=== PATIENT | male | born 1965 | race African-American/Black ===

== ENCOUNTER 2016-12-12 08:43 | Emergency (ER) | payer OTHER ==
[2016-12-12 09:40] LABS: ABSOLUTE BASOPHILS # (AUTO) 0.1 10^3/uL (0.0-0.2); ABSOLUTE EOSINOPHILS # (AUTO) 0.2 10^3/uL (0.0-0.6); ABSOLUTE MONOCYTES (AUTO) 0.4 10^3/uL (0.1-1.4); ABSOLUTE NEUT (AUTO) 1.5 10^3/uL (1.7-8.2); BASOPHILS % (AUTO) 1.2 % (0-2); HEMATOCRIT 38.5 % (37.9-51.0); HEMOGLOBIN 12.8 g/dL (13.5-17.0); HGB HCT DIFFERENCE -0.1; LYMPHOCYTES % (AUTO) 47.1 % (13-45); MEAN CORPUSCULAR HEMOGLOBIN 30.2 pg (27.0-33.4); MEAN CORPUSCULAR HGB CONC 33.4 g/dL (32.0-36.0); MEAN CORPUSCULAR VOLUME 91 fl (80-97); MONOCYTES % (AUTO) 10.5 % (3-13); RED BLOOD COUNT 4.25 10^6/uL (4.35-5.55); RED CELL DISTRIBUTION WIDTH 14.4 % (11.5-14.0); SEGMENTED NEUTROPHILS % (AUTO) 37.2 % (42-78); WHITE BLOOD COUNT 4.1 10^3/uL (4.0-10.5)
[2016-12-12 09:50] LABS: ALANINE AMINOTRANSFERASE 17 U/L (21-72); ALBUMIN 3.4 g/dL (3.5-5.0); ALKALINE PHOSPHATASE 72 U/L (38-126); ANION GAP 9 (5-19); ASPARTATE AMINO TRANSFERASE 21 U/L (17-59); BILIRUBIN,DIRECT 0.2 mg/dL (0.0-0.4); BILIRUBIN,TOTAL 0.8 mg/dL (0.2-1.3); BLOOD UREA NITROGEN 11 mg/dL (7-20); CALCIUM 9.4 mg/dL (8.4-10.2); CARBON DIOXIDE 28 mmol/L (22-30); CHLORIDE 107 mmol/L (98-107); CREATININE RESULT 0.82 mg/dL (0.52-1.25); GLUCOSE 87 mg/dL (75-110); POTASSIUM 3.9 mmol/L (3.6-5.0); SODIUM 144.3 mmol/L (137-145); TOTAL PROTEIN 6.4 g/dL (6.3-8.2)
[2016-12-12 09:51] LABS: ALCOHOL < 10 mg/dL (NONE DETECTED)
[2016-12-12 10:44] LABS: APPEARANCE,URINE CLEAR; BILIRUBIN,URINE NEGATIVE (NEGATIVE); GLUCOSE, URINE NEGATIVE (NEGATIVE); KETONES,URINE NEGATIVE (NEGATIVE); LEUKOCYTE ESTERASE,URINE NEGATIVE (NEGATIVE); NITRITE,URINE NEGATIVE (NEGATIVE); PROTEIN,URINE NEGATIVE (NEGATIVE); URINE SPECIFIC GRAVITY 1.013; UROBILINOGEN,URINE NEGATIVE mg/dL (<2.0)
--- NOTE | 2016-12-12 10:50 | EKG REPORT ---
SEVERITY:- ABNORMAL ECG - SINUS RHYTHM PROBABLE ANTEROSEPTAL INFARCT, AGE INDETERM : Confirmed by: Zaki Araya 12-Dec-2016 10:49:19
[2016-12-12 10:57] LABS: URINE BARBITURATES SCREEN NEGATIVE; URINE METHADONE SCREEN NEGATIVE; URINE PHENCYCLIDINE SCREEN NEGATIVE
[2016-12-12 11:09] LABS: URINE OPIATES LOW NEGATIVE
--- NOTE | 2016-12-12 12:18 | ER Document Report ---
ED General - General Chief Complaint: Psych Problem Stated Complaint: IVC WITH PAPERS Mode of Arrival: Medic Information source: Patient, [facility] Records Notes: 51 yr old male presents with psychosis hallucinations. Pt has not been taking his meds or taking care of himself, appears he tried tossing his adult sons who were at his home to help him out TRAVEL OUTSIDE OF THE [place] IN LAST 30 DAYS: No - HPI Onset: Just prior to arrival Onset/Duration: Sudden Quality of pain: No pain Severity: None Pain Level: Denies Associated symptoms: None Exacerbated by: Denies Relieved by: Denies Similar symptoms previously: Yes Recently seen / treated by doctor: Yes - Related Data Allergies/Adverse Reactions: No Known Allergies Allergy (Unverified 08/16/12 20:20) Past Medical History - Social History Smoking Status: Never Smoker Cigarette use (# per day): No Chew tobacco use (# tins/day): No Smoking Education Provided: No Frequency of alcohol use: None Drug Abuse: None Family History: Reviewed & Not Pertinent Patient has suicidal ideation: No Patient has homicidal ideation: No - Past Medical History Cardiac Medical History: Reports: Hx Hypertension Endocrine Medical History: Reports: Hx Diabetes Mellitus Type 2 Psychiatric Medical History: Reports: Hx Bipolar Disorder, Hx Schizophrenia - Immunizations Hx Diphtheria, Pertussis, Tetanus Vaccination: No Review of Systems - Review of Systems Notes: REVIEW OF SYSTEMS: CONSTITUTIONAL : Denies fever, chills, or sweats. Denies recent illness. EENT: Denies eye, ear, throat, or mouth pain or symptoms. Denies nasal or sinus congestion or discharge. Denies throat, tongue, or mouth swelling or difficulty swallowing. CARDIOVASCULAR: Denies chest pain. Denies palpitations or racing or irregular heart beat. Denies ankle edema. RESPIRATORY: Denies cough, cold, or chest congestion. Denies shortness of breath, difficulty breathing, or wheezing. GASTROINTESTINAL: Denies abdominal pain or distention. Denies nausea, vomiting , or diarrhea. Denies blood in vomitus, stools, or per rectum. Denies black, tarry stools. Denies constipation. GENITOURINARY: Denies difficulty urinating, painful urination, burning, frequency, blood in urine, or discharge. MUSCULOSKELETAL: Denies back or neck pain or stiffness. Denies joint pain or swelling. SKIN: Denies rash, lesions or sores. HEMATOLOGIC : Denies easy bruising or bleeding. LYMPHATIC: Denies swollen, enlarged glands. NEUROLOGICAL: Denies confusion or altered mental status. Denies passing out or loss of consciousness. Denies dizziness or lightheadedness. Denies headache. Denies weakness or paralysis or loss of use of either side. Denies problems with gait or speech. Denies sensory loss, numbness, or tingling. Denies seizures. PSYCHIATRIC: Denies anxiety or stress. Denies depression, suicidal ideation, or homicidal ideation. ALL OTHER SYSTEMS REVIEWED AND NEGATIVE. Dictation was performed using [employer] voice recognition software PHYSICAL EXAMINATION: GENERAL: Poor hygiene HEAD: Atraumatic, normocephalic. EYES: Pupils equal round and reactive to light, extraocular movements intact, sclera anicteric, conjunctiva are normal. ENT: Nares patent, oropharynx clear without exudates. Moist mucous membranes. NECK: Normal range of motion, supple without lymphadenopathy LUNGS: Breath sounds clear to auscultation bilaterally and equal. No wheezes rales or rhonchi. HEART: Regular rate and rhythm without murmurs ABDOMEN: Soft, nontender, nondistended abdomen. No guarding, no rebound. No masses appreciated. Musculoskeletal: Normal range of motion, no pitting or edema. No cyanosis. NEUROLOGICAL: Cranial nerves grossly intact. Normal speech, normal gait. Normal sensory, motor exams PSYCH: Normal mood, normal affect. SKIN: Warm, Dry, normal turgor, no rashes or lesions noted. Physical Exam - Vital signs Vitals: Temp Pulse Resp BP Pulse Ox 97.5 F 89 20 126/82 H 100 12/12/16 09:07 12/12/16 09:07 12/12/16 09:07 12/12/16 09:07 12/12/16 09:07 Course - Re-evaluation Re-evalutation: 12/12/16 12:39 Patient will be held for mental health evaluation, at this time he appears to be in no significant distress - Vital Signs Vital signs: Temp Pulse Resp BP Pulse Ox 97.5 F 89 20 126/82 H 100 12/12/16 09:07 12/12/16 09:07 12/12/16 09:07 12/12/16 09:07 12/12/16 09:07 - Laboratory Result Diagrams: 12/12/16 09:16 12/12/16 09:16 Laboratory results interpreted by me: 12/12/16 12/12/16 09:16 09:16 RBC 4.25 L Hgb 12.8 L RDW 14.4 H Seg Neutrophils % 37.2 L Lymphocytes % 47.1 H Absolute Neutrophils 1.5 L ALT 17 L Albumin 3.4 L Salicylates < 1.0 L Acetaminophen < 10 L - EKG Interpretation by Wy EKG shows normal: Sinus rhythm, [place], Intervals, QRS Complexes Discharge - Discharge Clinical Impression: Acute psychosis Condition: Stable Disposition: PSYCH HOSP/UNIT
--- NOTE | 2016-12-12 12:31 | PSYCHOLOGICAL NOTE ---
Psych Note - Psych Note Psych Note: Patient is a 51 year old male who presents via [facility] under IVC. Patient states he does not know why he is here and states his must have decided to try and have him stay here due to discord. Patient declined to state what the discord was. Patient states he takes care of himself "as best I can." Patient states nothing prevents him from caring for himself. Patient further denies being prescribed any medications, for psychiatric and or medical reasons. Patient denies any psychiatric medications history. He states he was seen here and prescribed something for pneumonia. Patient's , Ting Valdes states she attempted to have the patient IVC yesterday; however, was unable. states the patient yesterday lost control yesterday and attempted to kick their adult son's out of the house who drove from [place] to help with roof repairs. states it was unprovoked. reports mobile crisis came and he refused to engage and just repeatedly stated he was fine. She states she went to the store and returned for food for him, and observed him in a room actively engaging in conversation with no one else in the room. reports this is common for the patient; however, he will deny this. She states he can become combative when confronted re: the hallucinations. reports he does not bathe, will urinate and defecate on himself, and does not eat. She states he will ambulate from his room to the kitchen to get coffee, however it is actually water, and will sit and puff on an unlit cigar. reports the patient previously weighed 300 lbs and has lost a tremendous amount of weight. reports the patient was here 5 or so months ago and was held for a few days and upon discharge refused medications and follow up. reports she attempted to put the medications in his food; however, he caught her doing so and got upset. reports concerns for patient's overall lack of self care, hallucinations, and refusal to follow [facility] with [facility]. She also states the patient is hypertensive and diabetic, but does not take his prescribed medications for either. Patient is A&O. Mood is is guarded with odd affect. Patient denies suicidal/ homicidal ideations, intent, plan, or means. Patient denies A/V H; however, presents staring, slow to verbally respond, and unable to maintain eye contact suggesting he is experiencing internal stimuli. Patient's thought processes were guarded and goal oriented towards discharge. Conversational speech was slow and low for prosody. Intellectual abilities were estimated within average range. Attention and focus were poor. Insight, judgment, and impulse control were poor. Unspecified Schizophrenia or Other Psychosis Patient's presenting symptoms were similar to that of a psychotic disorder and cause clinically significant distress in all domains of his life At this time there is not enough information to make a more specific diagnosis ( eg PTSD vs Schizoaffective Disorde vs Schizophrenia) Patient is recommended to remain under IVC for medication administration, observation, and further observation. While patient denies all allegations in the IVC petition and collateral reports, patient presents poorly groomed with pungent body odor, substantiating reports of disengaging from self care/ anhedonia. I consulted with Dr. Jewell in regards to the care and management of this patient. ED MD is in agreement with disposition and recommendations.
[2016-12-12] MEDS ORDERED: BENZTROPINE MESYLATE INJ 2 MG/2 ML AMPULE IM SCH (13:15)
[2016-12-12] MEDS ORDERED: HALOPERIDOL LACTATE INJ 5 MG/1 ML VIAL IM SCH (13:15)
[2016-12-12] MEDS ORDERED: CITALOPRAM HYDROBROMIDE 20 MG TABLET PO SCH (14:00)
[2016-12-12] MEDS ORDERED: BENZTROPINE MESYLATE INJ 2 MG/2 ML AMPULE IM ONE ×2 (14:00→18:30)
[2016-12-12] MEDS ORDERED: HALOPERIDOL LACTATE INJ 5 MG/1 ML VIAL IM ONE ×2 (14:00→18:30)
[2016-12-12] MEDS ORDERED: CITALOPRAM HYDROBROMIDE 20 MG TABLET PO ONE ×2 (14:00→18:30)
[2016-12-13] MEDS: CITALOPRAM HYDROBROMIDE 20 MG TABLET PO SCH (09:46)
[2016-12-13] MEDS: BENZTROPINE MESYLATE INJ 2 MG/2 ML AMPULE IM SCH (09:48)
--- NOTE | 2016-12-13 13:44 | PSYCHOLOGICAL NOTE ---
Psych Note - Psych Note Psych Note: Conducted check in with patient who is a 51 year old male under IVC at [facility] ED. Patient initially presented yesterday via [facility] under IVC, petitioned by Mobile Crisis the day prior. Petition alleged that patient was responding to internal stimuli and also has stopped caring for himself. Patient has stated he does not want his to visit or have any communication. Patient today is observed sitting on the side of his bed, rocking and often staring at the wall in the corner. Receives contact with suicide prevention counselor, Jairo Mendes who works with the [facility]. Mr. Mendes states the patient's has presented to his office this morning seeking assistance in regards to the patient. Mr. Mendes additionally reports prior episodes of patient not engaging in services and instead the presenting reporting concerns congruent with current episode. Discussed with Mr. Mendes the need for an adult protective services report. This clinician will file reports due to concerns over any secondary gain on behalf of the , and patient's ability to safely care for himself. [facility] Adult Protective Services: APS report filed over concerns for patient's home environment Unspecified Schizophrenia or Other Psychosis Patient's presenting symptoms were similar to that of a psychotic disorder and cause clinically significant distress in all domains of his life At this time there is not enough information to make a more specific diagnosis ( eg PTSD vs Schizoaffective Disorde vs Schizophrenia) Patient is recommended to remain under IVC for medication administration, observation, and further observation.
[2016-12-13] MEDS: HALOPERIDOL LACTATE INJ 5 MG/1 ML VIAL IM SCH (18:09)
--- NOTE | 2016-12-13 19:31 | ER Document Report ---
Doctor's Note Notes: 12/13/16 19:30 Rounds at approximately 7:30 PM. Patient being evaluated for acute psychosis, probably schizophrenia. It appears he has not been taking his meds as an outpatient. Vital signs all been essentially normal. Lab studies were also essentially normal. Patient appears to be medically stable for transfer or discharge. Mental health has assessed the patient and feels he should stay overnight for reassessment tomorrow. Maris Sapp M.D.
[2016-12-14] MEDS: HALOPERIDOL LACTATE INJ 5 MG/1 ML VIAL IM SCH (06:50)
[2016-12-14] MEDS: CITALOPRAM HYDROBROMIDE 20 MG TABLET PO SCH (09:56)
[2016-12-14] MEDS: BENZTROPINE MESYLATE INJ 2 MG/2 ML AMPULE IM SCH (09:58)
[2016-12-14] MEDS ORDERED: HALOPERIDOL DECANOATE INJ 100 MG/1 ML VIAL IM PRN (10:27)
--- NOTE | 2016-12-14 11:18 | ER Document Report ---
Doctor's Note Notes: 12/14/16 11:17 Patient was seen by psychiatry service. At this time the plan is to change the by mouth Haldol 2 Haldol 2.5 mg twice a day, and give 1 dose of Haldol decanoate 100 mg IM. He will continue to be observed.
--- NOTE | 2016-12-14 11:40 | PSYCHOLOGICAL NOTE ---
Psych Note - Psych Note Psych Note: Conducted check in with patient who is a 51 year old male under IVC at [facility]. Patient continues today to sit in the same position staring at the wall. Patient has refused a shower. Patient does not verbally engage in conversation. Unspecified Schizophrenia or Other Psychosis Patient's presenting symptoms were similar to that of a psychotic disorder and cause clinically significant distress in all domains of his life At this time there is not enough information to make a more specific diagnosis ( eg PTSD vs Schizoaffective Disorde vs Schizophrenia) Patient is recommended to remain under IVC for medication administration, observation, and further observation. Patient today was administered a monthly Haldol Deconate to assist in managing his symptoms. Patient will remain in the Department for further observation and reevaluation tomorrow. I consulted with Dr. Jewell in regards to the care and management of this patient. EDMA is in agreement with dispostion and recommendations.
[2016-12-14] MEDS: HALOPERIDOL 5 MG TABLET PO SCH (18:27)
[2016-12-15] MEDS: BENZTROPINE MESYLATE INJ 2 MG/2 ML AMPULE IM SCH (10:05)
[2016-12-15] MEDS: HALOPERIDOL 5 MG TABLET PO SCH ×2 (10:08→18:32)
[2016-12-15] MEDS: CITALOPRAM HYDROBROMIDE 20 MG TABLET PO SCH (10:08)
--- NOTE | 2016-12-15 19:50 | ER Document Report ---
Doctor's Note Notes: 12/15/16 19:47 Patient seen and examined. No acute complaints. Pt with evidence of MS on MRI. His neurologic and psychiatric symptoms are slowly declining over the past 4 years, so do not suspect active demyelination at this time. Mental Health recommends stopping all antipsychotic medications as this may worsen MS. Mental Health will evaluate patient in the morning to talk about placement and further treatment options.
--- NOTE | 2016-12-16 10:13 | PSYCHOLOGICAL NOTE ---
Psych Note - Psych Note Psych Note: Conducted check in with patient who is a 51 year old male under IVC at [facility] ED. Patient continues today to sit in the same position staring at the wall. Patient states he is doing good but doesn't know why he is here. He states ' they told me I need an assessment." Patient states he does not have any mental health issues in the past or medical issues. He states that so far it is a good day. When asked when the last time he had a bad day he stated that he could not remember. Unspecified Schizophrenia or Other Psychosis Patient's presenting symptoms were similar to that of a psychotic disorder and cause clinically significant distress in all domains of his life At this time there is not enough information to make a more specific diagnosis ( eg PTSD vs Schizoaffective Disorde vs Schizophrenia) Patient is recommended to remain under IVC for medication administration, observation, and further observation. Patient today was administered a monthly Haldol Deconate to assist in managing his symptoms. Patient will remain in the Department for further observation and reevaluation tomorrow. I consulted with Dr. Jewell in regards to the care and management of this patient. EDPR is in agreement with dispostion and recommendations.
--- NOTE | 2016-12-16 10:21 | ER Document Report ---
ED Psych Disorder / Suicide - General Mode of Arrival: Medic TRAVEL OUTSIDE OF THE [place] IN LAST 30 DAYS: No <RAVI ESTRELLA - Last Filed: 12/16/16 10:17> <FIDELIA BROOKS - Last Filed: 12/16/16 10:42> - General Chief Complaint: Psych Problem Stated Complaint: IVC WITH PAPERS - HPI Notes: Patient has MRI preformed 12/15/2016- findings indicate extensive abnormal white matter disease with morphologic appearance favoring multiple sclerosis other demyelinating process. Patient is recommended for rescind of IVC is considered psychiatrically cleared for discharge. Patient does not meet IVC criteria per [place] GS 120 2C. Patient is recommended to follow up with neurology. Dr. Jewell was consulted on the care and management of this patient; attending physician is in agreement with recommendations and disposition. (RAVI ESTRELLA) - Related Data Allergies/Adverse Reactions: No Known Allergies Allergy (Unverified 08/16/12 20:20) Home Medications: Current Home Medications Unobtainable [Unobtainable] 12/13/16 [History] Past Medical History - General Information source: Patient, [facility] Records - Social History Smoking Status: Never Smoker Cigarette use (# per day): No Chew tobacco use (# tins/day): No Frequency of alcohol use: None Drug Abuse: None Family History: Reviewed & Not Pertinent Patient has suicidal ideation: No Patient has homicidal ideation: No - Past Medical History Cardiac Medical History: Reports: Hx Hypertension Endocrine Medical History: Reports: Hx Diabetes Mellitus Type 2 Psychiatric Medical History: Reports: Hx Bipolar Disorder, Hx Schizophrenia - Immunizations Hx Diphtheria, Pertussis, Tetanus Vaccination: No <RAVI ESTRELLA - Last Filed: 12/16/16 10:17> Course - Laboratory Result Diagrams: 12/12/16 09:16 12/12/16 09:16 <RAVI ESTRELLA - Last Filed: 12/16/16 10:17> - Laboratory Result Diagrams: 12/12/16 09:16 12/12/16 09:16 <FIDELIA BROOKS - Last Filed: 12/16/16 10:42> - Vital Signs Vital signs: Temp Pulse Resp BP Pulse Ox 97.4 F 58 L 16 137/94 H 99 12/16/16 07:00 12/16/16 07:00 12/16/16 07:00 12/16/16 07:00 12/16/16 07:00 - Laboratory Laboratory results interpreted by me: 12/12/16 12/12/16 09:16 09:16 RBC 4.25 L Hgb 12.8 L RDW 14.4 H Seg Neutrophils % 37.2 L Lymphocytes % 47.1 H Absolute Neutrophils 1.5 L ALT 17 L Albumin 3.4 L Salicylates < 1.0 L Acetaminophen < 10 L Discharge <RAVI ESTRELLA - Last Filed: 12/16/16 10:17> <FIDELIA BROOKS - Last Filed: 12/16/16 10:42> - Discharge Clinical Impression: Multiple sclerosis Condition: Stable Disposition: HOME, SELF-CARE Additional Instructions: Your MRI shows evidence that you have multiple sclerosis and must follow-up with the neurologist for further evaluation and treatment. Referrals: EVENS DONOHUE MD [ACTIVE STAFF] - Follow up as needed
[2016-12-16 11:38] VITALS: BP 107/72
== END 2016-12-16 12:06 | disposition home or self-care (01) ==
LOC: ER 08:43
DX: G35 Multiple sclerosis (principal); F23 Brief psychotic disorder; R44.3 Hallucinations, unspecified; F99 Mental disorder, not otherwise specified; I10 Essential (primary) hypertension; E11.9 Type 2 diabetes mellitus without complications; F31.9 Bipolar disorder, unspecified; F20.9 Schizophrenia, unspecified
CPT/HCPCS: 93005; 99285; 96372; 36415; 80307 ×4; 85025; 80053; 81001; 70551; 70450; 93010; J0515 ×2; J1630 ×2